=== PATIENT | female | born 1985 | race American Indian/Alaskan Native ===

== ENCOUNTER 2021-11-25 13:48 | Emergency (ER) | payer BC, MEDICAID ==
[2021-11-25 14:23] VITALS: BP 122/81
== END 2021-11-25 17:25 | disposition left against medical advice (07) ==
LOC: ED 13:48
DX: Z53.21 Procedure and treatment not carried out due to patient leaving prior to being seen by health care provider (principal); W19.XXXA Unspecified fall, initial encounter; Y93.89 Activity, other specified; Y92.89 Other specified places as the place of occurrence of the external cause; Y99.8 Other external cause status